=== PATIENT | male | born 1960 | race Caucasian/White ===

== ENCOUNTER 2022-09-05 17:03 | Emergency (ER) | payer BC, MEDICAID ==
[~2022-09-05] VITALS: Ht 170.2 cm; Wt 95.0 kg
[~2022-09-05 17:03] MED LIST: ALBU8.5H17 IH; AMIT75TA2 PO; ASCO-261 PO; ASPI-611 PO; ATOR40TA PO; CALC600T22 PO; CETI10CA PO; CLOP75TA34 PO; DEXL60CA3 PO; FLO0.4C PO; FLUO20CA39 PO; FLUT16SP26 BOTHNARES; HYDR-3972 PO; HYDR12.5 PO; LISI30TA4 PO; METF500T PO; MULT-1085 PO; NAPR-996 PO; OMEG-43 PO; PIOG30TA71 PO; PREG100C PO; SENN-129 PO; SITA100T11 PO; UMEC1DIS INH; UMEC62.5 INH; VITA-104 PO
[2022-09-05 18:32] LABS: BASOPHILS % (AUTO) 0.3 % (0-1); EOSINOPHILS % (AUTO) 0.5 % (0-6); HEMATOCRIT 40.4 % (42.0-52.0); HEMOGLOBIN 13.5 g/dl (14.0-17.9); LYMPHOCYTES # (AUTO) 1.8 X10'3 (1.1-4.8); LYMPHOCYTES % (AUTO) 21.2 % (21-51); MEAN CORPUSCULAR HEMOGLOBIN 30.4 PG (27.0-31.0); MEAN CORPUSCULAR HGB CONC 33.6 g/dL (33.0-36.5); MEAN CORPUSCULAR VOLUME 90.4 FL (78-98); MEAN PLATELET VOLUME 7.8 FL (7.4-10.4); MONOCYTES # (AUTO) 0.5 X10'3 (0-0.9); MONOCYTES % (AUTO) 5.4 % (2-12); NEUTROPHILS # (AUTO) 6.1 X10'3 (1.8-7.7); NEUTROPHILS % (AUTO) 72.6 % (42-75); PLATELET COUNT 202 X10'3 (140-440); RED BLOOD COUNT 4.46 X10'6 (4.70-6.10); RED CELL DISTRIBUTION WIDTH 14.7 % (11.5-14.5); WHITE BLOOD COUNT 8.4 X10'3 (4.5-11.0)
[2022-09-05 18:53] LABS: ALANINE AMINOTRANSFERASE 25 U/L (12-78); ALBUMIN 3.6 G/DL (3.4-5.0); ALKALINE PHOSPHATASE 102 IU/L (46-116); ANION GAP 9 (8-16); ASPARTATE AMINO TRANSFERASE 15 U/L (10-37); BILIRUBIN,TOTAL 0.5 MG/DL (0.1-1.0); BLOOD UREA NITROGEN 16 MG/DL (7-18); BUN/CREATININE RATIO 11.1 (10.0-20.0); CALCIUM 9.1 MG/DL (8.5-10.1); CHLORIDE 103 MMOL/L (99-107); CREATININE 1.44 MG/DL (0.60-1.10); GLUCOSE 252 MG/DL (70-104); POTASSIUM 4.4 MMOL/L (3.5-5.1); SODIUM 139 MMOL/L (135-145); TOTAL CARBON DIOXIDE 26.7 MMOL/L (24-32); TOTAL PROTEIN 7.2 G/DL (6.4-8.2); eGFR 50 ML/MIN
[2022-09-05] MEDS ORDERED: iohexol 350MG/ML 100ml bottle IV ONE (20:31)
[2022-09-05 20:49] LABS: APTT 25 SECONDS (22-32)
[2022-09-05 22:00] VITALS: BP 133/76
[2022-09-05] MEDS ORDERED: dexamethasone 4mg/ml inj IV ONE ×2 (23:25→23:50)
[2022-09-05] MEDS ORDERED: dexamethasone 4mg/ml inj IV SCH (23:25)
[2022-09-06 00:24] LABS: CLARITY,URINE CLEAR (Clear); GLUCOSE, URINE NEGATIVE (Neg); KETONES,URINE TRACE mg/dl (Neg); LEUKOCYTE ESTERASE ,URINE NEGATIVE (Neg); NITRITES, URINE NEGATIVE (Neg); OCCULT BLOOD,URINE NEGATIVE (Neg); PROTEIN,URINE NEGATIVE (Neg); UROBILINOGEN,URINE 0.2 E.U/dL (0.2-1.0)
[2022-09-06 00:41] LABS: COLOR,URINE DARK YELLOW (Yellow); UA COLLECTION TYPE CLN CATCH MIDSTREAM
[2022-09-06] MEDS ORDERED: LORazepam 2 mg/ml vial IV ONE (01:55)
[2022-09-06] MEDS ORDERED: dexamethasone 4mg/ml inj IV SCH (02:00)
== END 2022-09-06 02:18 | disposition admitted as inpatient to this hospital (09) ==
LOC: ER 17:04
DX: I62.9 Nontraumatic intracranial hemorrhage, unspecified (principal); Z20.822 Contact with and (suspected) exposure to COVID-19; E78.00 Pure hypercholesterolemia, unspecified; I51.9 Heart disease, unspecified; E11.9 Type 2 diabetes mellitus without complications; Z79.899 Other long term (current) drug therapy
CPT/HCPCS: 36415; 70450; 71045; 80053; 81003; 83880; 84484; 85025; 85610; 85730; 87811; 93005; 96374; 96375; 99291; J1100; J2060; J3490; Q9967

== ENCOUNTER 2022-09-16 15:17 | Emergency (ER) | payer BC, MEDICAID ==
[~2022-09-16] VITALS: Ht 170.2 cm; Wt 100.0 kg
[2022-09-16 16:10] LABS: BASOPHILS % (AUTO) 0.1 % (0-1); EOSINOPHILS % (AUTO) 0.2 % (0-6); HEMATOCRIT 33.2 % (42.0-52.0); HEMOGLOBIN 11.1 g/dl (14.0-17.9); LYMPHOCYTES # (AUTO) 1.3 X10'3 (1.1-4.8); MEAN CORPUSCULAR HEMOGLOBIN 30.7 PG (27.0-31.0); MEAN CORPUSCULAR HGB CONC 33.4 g/dL (33.0-36.5); MEAN CORPUSCULAR VOLUME 91.9 FL (78-98); MEAN PLATELET VOLUME 9.2 FL (7.4-10.4); MONOCYTES # (AUTO) 0.7 X10'3 (0-0.9); MONOCYTES % (AUTO) 5.2 % (2-12); NEUTROPHILS # (AUTO) 10.8 X10'3 (1.8-7.7); NEUTROPHILS % (AUTO) 84.5 % (42-75); PLATELET COUNT 147 X10'3 (140-440); RED BLOOD COUNT 3.61 X10'6 (4.70-6.10); RED CELL DISTRIBUTION WIDTH 14.7 % (11.5-14.5); WHITE BLOOD COUNT 12.8 X10'3 (4.5-11.0)
[2022-09-16 16:30] LABS: ALKALINE PHOSPHATASE 78 IU/L (46-116); ANION GAP 7 (8-16); ASPARTATE AMINO TRANSFERASE 15 U/L (10-37); BILIRUBIN,TOTAL 0.3 MG/DL (0.1-1.0); BLOOD UREA NITROGEN 36 MG/DL (7-18); CALCIUM 9.1 MG/DL (8.5-10.1); CHLORIDE 99 MMOL/L (99-107); CREATININE 1.64 MG/DL (0.60-1.10); POTASSIUM 4.7 MMOL/L (3.5-5.1); SODIUM 132 MMOL/L (135-145); TOTAL CARBON DIOXIDE 26.2 MMOL/L (24-32); TOTAL PROTEIN 5.9 G/DL (6.4-8.2); eGFR 43 ML/MIN
[2022-09-16 16:41] LABS: ALANINE AMINOTRANSFERASE 59 U/L (12-78)
[2022-09-16 16:51] LABS: GLUCOSE 526 MG/DL (70-104)
[2022-09-16 18:25] LABS: CLARITY,URINE CLEAR (Clear); COLOR,URINE YELLOW (Yellow); GLUCOSE, URINE 500 mg/dl (Neg); KETONES,URINE TRACE mg/dl (Neg); LEUKOCYTE ESTERASE ,URINE NEGATIVE (Neg); NITRITES, URINE NEGATIVE (Neg); OCCULT BLOOD,URINE NEGATIVE (Neg); PH,URINE 5.5 (4.8-8.0); PROTEIN,URINE NEGATIVE (Neg); UROBILINOGEN,URINE 0.2 E.U/dL (0.2-1.0)
[2022-09-16 18:27] LABS: UA COLLECTION TYPE VOIDED
[2022-09-16] MEDS ORDERED: insulin regular, human 10 units/0.1 ml syringe SQ ONE ×2 (22:05→22:40)
[2022-09-16] MEDS ORDERED: dexamethasone 4mg tablet PO ONE (22:40)
[2022-09-16] MEDS ORDERED: DEC4T PO (22:43)
[2022-09-16] MEDS ORDERED: FAMO40TA73 PO (22:49)
[2022-09-16] MEDS ORDERED: HYDR-3972 PO (22:49)
[2022-09-16 22:54] VITALS: BP 130/66
== END 2022-09-16 23:00 | disposition home or self-care (01) ==
LOC: ER 15:19
DX: T81.9XXA Unspecified complication of procedure, initial encounter (principal); R22.0 Localized swelling, mass and lump, head; R73.9 Hyperglycemia, unspecified; I11.9 Hypertensive heart disease without heart failure; E11.9 Type 2 diabetes mellitus without complications; Z88.1 Allergy status to other antibiotic agents; Z88.8 Allergy status to other drugs, medicaments and biological substances; Z79.899 Other long term (current) drug therapy; Z79.1 Long term (current) use of non-steroidal anti-inflammatories (NSAID); Z79.2 Long term (current) use of antibiotics
CPT/HCPCS: 36415; 70450; 71045; 80053; 81003; 82948; 83605; 84145; 85025; 87040; 96372; 99285; J1815